=== PATIENT | female | born 1930 | race Caucasian/White ===

== ENCOUNTER → 2016-09-14 | Outpatient (CLI) | payer MEDICARE, OTHER ==
[~2016-09-14] MED LIST: ALTACE DPS5 MG PO; ALTACE2.5 MG PO; ASA CHILDREN'S81 MG PO; ASA325 MG PO; ASCORBIC ACID250 MG PO; CALCIUM CITRAT1 EAC2 PO; CENTRAL-VITE1 EACH PO; FEOSOL-DPS325 MG PO; FORTEO600 MCG/2. SQ; GLYNASE3 MG PO; LUTEIN6 MG PO; MACROBID100 MG PO; TYLENOL DPS325 MG PO; TYLENOL EXTRA500 M1 PO; ULTRAM DPS50 MG PO; VITAMIN D1000 UNIT PO
== END | disposition home or self-care (01) ==
LOC: RAD.S 09-11 11:30
DX: J18.9 Pneumonia, unspecified organism (principal); J98.09 Other diseases of bronchus, not elsewhere classified